=== PATIENT | female | born 1970 | race Two or more races ===

== ENCOUNTER 2020-10-04 12:46 | Emergency (ER) | payer MEDICAID, OTHER ==
[~2020-10-04] VITALS: Ht 152.4 cm; Wt 63.5 kg
[2020-10-04 12:53] VITALS: BP 129/66
[2020-10-04] MEDS ORDERED: EPINEPHrine HCL 1 MG/1 ML AMP SC ONE (14:00)
[2020-10-04] MEDS ORDERED: methylPREDNISolone SOD SUCC 125 MG/2 ML VL IM ONE (14:00)
== END 2020-10-04 14:33 | disposition home or self-care (01) ==
LOC: ER 12:46
DX: T78.40XA Allergy, unspecified, initial encounter (principal); N39.0 Urinary tract infection, site not specified; X58.XXXA Exposure to other specified factors, initial encounter
CPT/HCPCS: 81002; 96372; 99284; J0171; J2930

== ENCOUNTER 2021-07-22 19:14 | Emergency (ER) | payer MEDICAID ==
[~2021-07-22] VITALS: Ht 152.4 cm; Wt 63.5 kg
[2021-07-23] MEDS ORDERED: GUAI600T23 PO (01:34)
[2021-07-23] MEDS ORDERED: IBUP800T27 PO (01:34)
[2021-07-23] MEDS ORDERED: ALBUAER3 IN (01:34)
[2021-07-23 02:53] VITALS: BP 119/83
== END 2021-07-23 02:58 | disposition home or self-care (01) ==
LOC: ER 19:16
DX: J06.9 Acute upper respiratory infection, unspecified (principal); Z20.822 Contact with and (suspected) exposure to COVID-19
CPT/HCPCS: 36415; 87426

== ENCOUNTER 2025-06-07 13:33 | Emergency (ER) | payer MEDICAID, OTHER ==
[~2025-06-07] VITALS: Ht 152.4 cm; Wt 76.0 kg
[~2025-06-07 13:33] MED LIST: ALBUAER3 IN; GUAI600T78 PO; IBUP-1456 PO
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
--- NOTE | 2025-06-07 14:57 | DVH ---
CLINICAL INDICATION: fall TECHNIQUE: 2 radiographic views of the lumbar spine were obtained. Comparison: None FINDINGS/IMPRESSION: Normal bony alignment. There are no compressed vertebra. Satisfactory intervertebral disc spaces are noted at all levels.
--- NOTE | 2025-06-07 15:15 | DVH ---
XY R KNEE 3V XRAY, INDICATION: fall TECHNICAL DATA: Frontal , oblique and lateral views were obtained of the right knee. COMPARISON: None FINDINGS: No fracture is identified. Medial, lateral and patellofemoral compartment joint spaces are maintained. Alignment is anatomic. Soft tissues are within normal limits. No joint effusion is demonstrated. IMPRESSION: No acute fracture or dislocation of the right knee.
[2025-06-07] MEDS ORDERED: IBU600T PO (15:38)
[2025-06-07 17:11] VITALS: BP 148/88; PULSE 71; RESP 20; TEMP 97.7; O2SAT 98
[2025-06-07] MEDS: HYDROcodone-ACET 10/325MG TAB PO ONE (17:56)
--- NOTE | 2025-06-07 18:29 | DVH ---
CLINICAL INDICATION: fall TECHNIQUE: 2 radiographic views of the right hand were obtained. Comparison: None FINDINGS/IMPRESSION: There is no evidence of acute fracture or dislocation. Ring overlies the proximal phalanx of the 4th digit limiting evaluation. The visualized joint space is well maintained. The alignment is anatomical. There is no radiopaque foreign body.
== END 2025-06-07 18:44 | disposition home or self-care (01) ==
LOC: ER 13:33
DX: T14.8XXA Other injury of unspecified body region, initial encounter (principal); M25.561 Pain in right knee; M79.641 Pain in right hand; F41.9 Anxiety disorder, unspecified; F32.A Depression, unspecified; Z79.899 Other long term (current) drug therapy; X58.XXXA Exposure to other specified factors, initial encounter; Y93.89 Activity, other specified; Y92.89 Other specified places as the place of occurrence of the external cause; Y99.8 Other external cause status
CPT/HCPCS: 72100; 73120; 73562